=== PATIENT | female | born 1950 | race Caucasian/White ===

== ENCOUNTER 2018-10-20 10:22 | Inpatient (IN) | payer OTHER ==
[~2018-10-20] VITALS: Ht 167.6 cm; Wt 103.0 kg
[~2018-10-20 10:22] MED LIST: NAPROSYN500 MG PO; TRAMADOL 50 MG50 MG PO
[2018-10-20 11:02] LABS: HEMOGLOBIN 9.1 gm/dL (12.0-15.0); MCH 26.3 pg (26.0-34.0); MCHC 31.5 g/dL (28.0-37.0); MCV 83.5 fL (80.0-100.0); RBC 3.48 mil/uL (4.20-5.00); RDW 15.8 % (10.5-14.5)
[2018-10-20 11:12] LABS: ANION GAP 5 mmol/L (7-16); BUN 11 mg/dL (7-18); CALCIUM 9.2 mg/dL (8.5-10.1); CHLORIDE 101 mmol/L (98-107); CO2 39 mmol/L (21-32); CREATININE 0.8 mg/dL (0.6-1.0); GLUCOSE 240 mg/dL (74-106); POTASSIUM 3.1 mmol/L (3.5-5.1); SODIUM 145 mmol/L (136-145)
[2018-10-20 11:22] LABS: TROPONIN-I <0.06 ng/mL (<0.06)
[2018-10-20 12:11] VITALS: BP 114/49
--- NOTE | 2018-10-20 12:25 | NUR ---
REPORT TO ESTHER PRICE
--- NOTE | 2018-10-20 12:53 | NUR ---
REASSUMED PT CARE. ROOM ASSIGNEMT GIVEN AT 1230, SBAR FAXED
--- NOTE | 2018-10-20 12:57 | EKG ---
[address] [place] [address] ELECTROCARDIOGRAM REPORT Name: LYUBOV CASTILLO SANTANA Room #: 170-10 ADM IN M.R.#: [id number] Admission: 10/20/18 Attend Phys: Amy Matthews MD Discharge: Date of : 50 Report #: [id number] THIS REPORT FOR: //name// [facility] ED Test Date: 2018-10-20 Test Time: 11:15:23 Pat Name: LYUBOV CASTILLO Department: Room: 170 Gender: F Relay Man: ZAG : 1950 Requested By: Valentino Hull Order Number: [id number] MD: Mukul Ngo Measurements Intervals [place] Rate: 87 P: 73 MN: 150 QRS: 26 QRSD: 85 T: 50 QT: 351 QTc: 423 Interpretive Statements Sinus rhythm No significant abnormality Compared to ECG 06/23/2008 12:21:48 No significant changes Electronically Signed On 10-20-2018 12:57:11 PROGRAM ENGAGEMENT DIRECTOR by Mukul Ngo [email or web address] <ELECTRONICALLY SIGNED> By: Mukul Ngo MD, [facility] 10/20/18 1257 1115 1115 Mukul Ngo MD, FACC /EPI
[2018-10-20 13:10] VITALS: BP 125/62
[2018-10-20] MEDS ORDERED: ALLOPURINOL 10100 M1 PO (13:49)
[2018-10-20] MEDS ORDERED: NORVASC5 MG PO (14:12)
[2018-10-20] MEDS ORDERED: LIPITOR 20 MG T20 M1 PO (14:13)
[2018-10-20] MEDS ORDERED: CLOBETASOL PROP60 G3 TOP (14:15)
[2018-10-20] MEDS ORDERED: CLONAZEPAM 1 MG1 M1 PO (14:18)
[2018-10-20] MEDS ORDERED: IRON325 PO (14:19)
[2018-10-20] MEDS ORDERED: DALIRESP500 MCG PO (14:19)
[2018-10-20] MEDS ORDERED: LASIX 20 MG TAB20 MG PO (14:20)
[2018-10-20] MEDS ORDERED: AVAPRO300 MG PO (14:21)
[2018-10-20] MEDS ORDERED: JANUMET XR 50-1 EAC1 PO (14:22)
[2018-10-20] MEDS ORDERED: SYNTHROID175 MCG PO (14:23)
[2018-10-20] MEDS ORDERED: MOBIC15 MG PO (14:24)
[2018-10-20] MEDS ORDERED: TOPROL XL25 MG PO (14:25)
[2018-10-20] MEDS ORDERED: REQUIP 1 MG TABL1 M1 PO (14:26)
[2018-10-20] MEDS ORDERED: PROVENTIL HFA6.7 G1 INH (14:26)
[2018-10-20 16:36] VITALS: BP 156/74
--- NOTE | 2018-10-20 19:16 | NUR ---
RECEIVED REPORT FROM EDINSON WALKER. PT ARRIVED UNIT ON WHEELCHAIR AT 1500H ACCOMPANIED BY NURSING STAFF. PT AMBULATED TO BATHROOM ON ARRIVAL ON NC 4.0L. PT ON HEARTH AND CARB COUNT DIET. PT INSULIN ADM AND TOLERATES MEALS AND MEDS. PT PREFERS ICE. PT EDUCATED AND ORIENTED TO UNIT. PT CURRENTLY SITTED AT BEDSIDE LEANING ON BEDSIDE TABLE. PT EDUCATED TO USE CALL LIGHT. CONSULTED RESPIRATORY TO SETUP CPAP FOR PT. PT HAS NO S/S OF DISTRESS AND CONT TO BE MONITORED FOR SAFETY.
[2018-10-20 19:28] VITALS: BP 139/72
[2018-10-21 00:06] LABS: GLYCOHEMOGLOBIN (HGB A1C) 7.7 % (4.8-5.6)
[2018-10-21 03:17] VITALS: BP 137/85
--- NOTE | 2018-10-21 05:18 | NUR ---
PT AWAKE AND ALERT AT THE TIME OF SHIFT CHANGE. SITTING ON THE EDGE OF THE BED. NO COMPLAINTS AT THIS TIME. UP AD ALICIA, ON 4L NC, NO SIGNS OF DISTRESS. BLOOD SUGAR HIGH AND PT REQUESTING SUGARY SNACKS AND DRINKS. EDUCATION WAS GIVEN ON CARB CONTROL, STEROIDS AND THE HEALING PROCESS. WAS ABLE TO REDIRECT PT TO SUGAR FREE JELLO AND DIET SPRITE. 12U SLIDING SCALE INSULIN GIVEN. PT HAD NO C/O PAIN OVERNIGHT. WAS ONLY ABLE TO SLEEP ABOUT 3 HOURS WHICH SHE STATES IS NORMAL FOR HER. ON CPAP WHILE SLEEPING. O2 SATS REMAINED >92%. RESTLESS LEGS BOTHERED HER OVERNIGHT AND PT ASKED WHY SHE HAD NOT RECEIVED HER REQUIP. SPOKE TO CHRISTIN Johnson APRN. ORDER RECEIVED TO RESTART REQUIP 1MG PO QHS, INSTEAD OF THE THREE TIMES DAILY SHE TAKES IT AT HOME D/T HER COPD EXACCERBATION. PROGRESSING TOWARDS MEETING GOALS
[2018-10-21 05:29] LABS: HEMOGLOBIN 9.9 gm/dL (12.0-15.0); MCH 25.9 pg (26.0-34.0); MCV 83.3 fL (80.0-100.0); RBC 3.85 mil/uL (4.20-5.00); RDW 16.2 % (10.5-14.5)
[2018-10-21 05:41] LABS: CALCIUM 9.7 mg/dL (8.5-10.1); CREATININE 0.9 mg/dL (0.6-1.0)
[2018-10-21 07:36] VITALS: BP 149/93
--- NOTE | 2018-10-21 09:09 | 2DMMODE ---
[facility] [place] [address] 2 D/M-MODE ECHOCARDIOGRAM Name: LYUBOV CASTILLO TABOR Room #: 455-P ADM IN M.R.#: [id number] Admission: 10/20/18 Attend Phys: Amy Matthews MD Discharge: Date of : 50 Date of Service: 10/21/18 0908 Report #: [id number] THIS REPORT FOR: //name// APPROVED REPORT Study performed: 10/21/2018 08:15:06 EXAM: Comprehensive 2D, Doppler, and color-flow Echocardiogram Patient Location: Echo lab Room #: [facility] Status: routine BSA: 2.11 HR: 98 bpm BP: 149/93 mmHg Rhythm: NSR Other Information Study Quality: Excellent Indications Dyspnea Hx: COPD, HTN, HLP, DM 2D Dimensions RVDd: 31.23 mm IVSd: 11.03 (7-11mm) LVOT Diam: 19.98 (18-24mm) LVDd: 49.53 mm PWd: 11.90 (7-11mm) Ascending Ao: 30.87 (22-36mm) LVDs: 34.17 (25-40mm) Aortic Root: 30.44 mm Volumes Left Atrial Volume (Systole) Single Plane 4CH: 48.54 mL Single Plane 2CH: 53.54 mL LA ESV Index: 25.00 mL/m2 Aortic Valve AoV Peak Ryan.: 2.03 m/s AO Peak Gr.: 16.55 mmHg LVOT Max P.83 mmHg LVOT Max V: 1.31 m/s [place] Vmax: 2.01 cm2 Mitral Valve E/A Ratio: 0.8 MV Decel. Time: 168.75 ms [facility] [place] [place] [address] 2 D/M-MODE ECHOCARDIOGRAM Name: CASTILLOLUYBOV TABOR Room #: 455-[facility] IN ..#: [id number] Admission: 10/20/18 Attend Phys: Amy Matthews MD Discharge: Date of : 50 Date of Service: 10/21/18 0908 Report #: [id number] E Max Ryan.: 1.09 m/s MV A Ryan.: 1.40 m/s MV PHT: 48.94 ms IVRT: 48.44 ms Pulmonary Valve PV Peak Ryan.: 1.31 m/s PV Peak Gr.: 6.91 mmHg Pulmonary Vein P Vein S: 0.69 m/s P Vein A: 0.39 m/s P Vein D: 0.58 m/s P Vein A Dur.: 106.1 msec P Vein S/D Ratio: 1.19 Tricuspid Valve TR Peak Ryan.: 2.52 m/s RAP Estimate: 5.00 mmHg TR Peak Gr.: 25.33 mmHg PA Pressure: 30.00 mmHg Left Ventricle The left ventricle is normal size. There is normal LV segmental wall motion. Borderline concentric left ventricular hypertrophy. Left ventricular systolic function is normal. LVEF is 60-65%. Mild diastolic dysfunction is present (impaired relaxation pattern). Right Ventricle The right ventricle is normal size. The right ventricular systolic function is normal. Atria The left atrium size is normal. The right atrium size is normal. Aortic Valve The aortic valve is not well visualized. No aortic regurgitation is present. There is no aortic valvular stenosis. Mitral Valve The mitral valve is normal in structure. Mild mitral regurgitation. Tricuspid Valve The tricuspid valve is normal in structure. Trace tricuspid regurgitation. Estimated PAP is 30mmHg. Pulmonic Valve [facility] [address] [place] [address] 2 D/M-MODE ECHOCARDIOGRAM Name: LYUBOV CASTILLO TABOR Room #: 455-P [facility] IN .R.#: [id number] Admission: 10/20/18 Attend Phys: Amy Matthews MD Discharge: Date of : 50 Date of Service: 10/21/18 0908 Report #: [id number] Pulmonic valve is not well visualized. Great Vessels The aortic root is normal in size. The ascending aorta is normal in size. IVC is normal in size and collapses >50% with inspiration. Pericardium There is no pericardial effusion. <Conclusion> Left ventricular systolic function is normal. There is normal LV segmental wall motion. LVEF is 60-65%. Mild diastolic dysfunction The aortic valve is not well visualized. No aortic regurgitation or stenosis The mitral valve is normal in structure. Mild mitral regurgitation. Trace tricuspid regurgitation. Estimated pulmonary artery pressure of 30mmHg. There is no pericardial effusion. <ELECTRONICALLY SIGNED> By: Mukul Ngo MD, [facility] 10/21/18907 7 7 Mukul Ngo MD, FACC /INF
--- NOTE | 2018-10-21 10:02 | NUR ---
ORDER RECEIVED FOR EVAL AND TREAT. Pt IS UP AD ALICIA PER NURSING NOTES. SPOKE TO Pt WHO STATES SHE IS NOT HAVING ANY DIFFICULTY WITH MOBILITY AND HAS BEEN UP AND DOWN TO THE BATHROOM. Pt DECLINING FORMAL P.T. EVAL BUT STATES SHE WILL CONTINUE TO MOBILIZE ON HER OWN
--- NOTE | 2018-10-21 11:46 | NUR ---
ASSUMED CARE OF PT 0700. DENIES PAIN, SOA WITH ACTIVITY. VSS, COMPLIANT WITH CARES. SEEN BY DR PRATT TODAY WHO CLARIFIED PT CAN HAVE 2 CUPS DECAF COFFEE DAILY NO OTHER CHANGES WILL BE MADE TO DIET AT THIS POINT. MEDICATIONS CLARIFIED WITH PT PHARMACY. PT [facility]ED TO [facility].
[2018-10-21 12:00] VITALS: BP 157/86
--- NOTE | 2018-10-21 19:19 | NUR ---
PATIENT TRANSFERRED FROM [facility], REPORT FROM ALAINA/RN. PATIENT ALERT AND ORIENTED X 4. PATIENT UP AD ALICIA TO BATHROOM. PATIENT HAS O2 AT 4 LITERS/NC IN PLACE AND SHE USE AT HOME/CPAP AT NIGHT. PATIENT'S BLOOD SUGAR HAS BEEN ELEVATED SINCE LUNCH 453, NOTIFIED DR PRATT, SHE ORDERED TO REMOVE LUNCH TRAY CHECK HOURLY UNTIL UNDER 250, CONTINUE GIVING INSULIN EACH TIME PER S/S, S/S SCALE CHANGED TO MODERATE, AND START LANTUS 20 UNITS TONIGHT. LAST BLOOD SUGAR 265 AT 1820, 12 UNITS GIVEN. THIS RN CALLED DR PRATT AT 1700 TO GIVE UPDATE, NO RETURN CALL BACK, PATIENT ATE HER DINNER. WILL CONTINUE TO MONITOR.
[2018-10-21 19:27] VITALS: BP 126/60
[2018-10-21 22:46] VITALS: BP 126/60
--- NOTE | 2018-10-22 05:15 | NUR ---
Pt A/OX4,up ad mae in room. C/o a headache at HS medicated with Tylenol with relief reported. Pt's accucheck was 236 at 2140 so no more hourly accuchecks done and pt was pleased with the results as well. VSS.Voiding without any difficulties voiced. Pt wore the CPAP on until 0200 and requested to be turned off and back on O2 @ 4L/NC.Resting on the recliner at this time eyes closed,no distress noted. Call light/personal items placed within reach. Will continue to monitor pt.
[2018-10-22 06:15] LABS: HEMATOCRIT 29.3 % (37.0-47.0); HEMOGLOBIN 9.4 gm/dL (12.0-15.0); MCH 26.8 pg (26.0-34.0); MCHC 32.2 g/dL (28.0-37.0); RBC 3.53 mil/uL (4.20-5.00); RDW 16.4 % (10.5-14.5); WBC 8.4 thou/uL (4.0-11.0)
[2018-10-22 06:24] LABS: CALCIUM 9.6 mg/dL (8.5-10.1); CREATININE 0.9 mg/dL (0.6-1.0)
[2018-10-22 08:15] VITALS: BP 170/93
--- NOTE | 2018-10-22 11:06 | NUR ---
INITIAL ASSESSMEN: JAROD reviewed chart and spoke with nursing and attending physician. Pt was admitted from home due to exacerbation of COPD/Hypoxia. Pt was [facility] from and is progressing towards goals for discharge. [facility]. Introduced role of SW. Pt is alert/orientated x 4. Pt reports she lives at home with her dtr. Prior to admission, pt was independent with ADLs. Pt has a walker at home. Pt has home O2 and cpap provided by [facility]. Pt is normally on 4L of continuous O2. Pt is currently on service with [facility] for HH services. RN and PT see pt twice per week. Pt's PCP is Dr. Luz Marina Porter. Plan is for pt to discharge home and resume HH when medically stable. Pt's family will be able to provide transportation home. JAROD is following to assist as needed with discharge planning.
[2018-10-22] MEDS ORDERED: DOXYCYCLINE HYC50 MG PO (11:42)
[2018-10-22] MEDS ORDERED: PREDNISONE 20 M20 MG PO (11:42)
[2018-10-22 13:32] VITALS: BP 182/97
[2018-10-22] MEDS ORDERED: PROTONIX40 M1 PO (15:01)
--- NOTE | 2018-10-22 16:06 | NUR ---
dp faxed clinical info and dc orders to [facility], dp called [facility] to verify they received, patient home today.
--- NOTE | 2018-10-22 18:04 | NUR ---
ASSUMED CARE OF PATIENT AT 0715, PATIENT ALERT AND ORIENTED X 4. UP AD ALICIA. PATIENT DENIES PAIN, BUT HAD PAIN AT IV SITE, DR BRADFORD NOTIFIED, IV REMOVED, PATIENT GIVEN TRAMADOL, PAIN RESOLVED. BLOOD SUGAR MONITORING ORDERED, INSULIN GIVEN PER S/S. DR BRADFORD DISCHARGED PATIENT TO HOME WITH HOME HEALTH. ALL DISCHARGE PAPERWORK SENT WITH PATIENT, AND ALL PERSONAL BELONGONGS SENT WITH PATIENT.
--- NOTE | 2018-10-22 19:39 | HC ---
[facility] [address] CONSULTATION Name: LYUBOV CASTILLO Room #: 226-P [facility] IN .R.#: [id number] Admission: 10/20/18 Attend Phys: Amy Matthews MD Discharge: 10/22/18 Date of : 50 Report #: [id number] THIS REPORT FOR: //name// CC: Luz Marina Matthews DATE OF SERVICE: 10/20/2018 TYPE OF REPORT: Pulmonary consultation. REFERRING PHYSICIAN: Amy Matthews M.D. REASON FOR REFERRAL: COPD. HISTORY OF PRESENT ILLNESS: The patient is a 68-year-old white female who presents to the Emergency Room with progressive dyspnea. She has known history of COPD. A Pulmonary consultation was requested. The patient states that she is followed normally by the medical housekeeper at [facility]. She states that she has had frequent hospitalizations over the past year. She has been hospitalized at least once or twice per month over the last several months. She was told by the [facility] that she could no longer be there as they have nothing else to offer her. For that reason, the patient is here for further evaluation. Her medical housekeeper practices at [facility]. The patient has smoked for many years but quit in 2017. She knows that she gets recurrent dyspnea. As mentioned above, she has had trouble with frequent recurrent exacerbation of COPD and the reasons of this is unclear. On this occasion, she has been doing fair until the past few days prior to presentation, she noticed increasing dyspnea and lower extremity edema. Otherwise, denies any chest pain, night sweats or chills, productive cough or hemoptysis. She is on chronic O2 at 4 liters. PAST MEDICAL HISTORY: Notable for COPD, O2 dependent at 4 liters; diabetes mellitus type 2 and hypercholesterolemia. ALLERGIES: ASPIRIN, which causes hives. HOME MEDICATIONS: Include zolpidem, Norvasc, Lipitor, clonazepam, Daliresp, iron, Lasix, Avapro, Janumet, Synthroid, Mobic, Toprol-XL, Proventil and Requip. FAMILY HISTORY: Noncontributory. [facility] [address] [place] [address] CONSULTATION Name: LYUBOV CASTILLO SANTANA Room #: 226-P [facility] IN .R.#: [id number] Admission: 10/20/18 Attend Phys: Amy Matthews MD Discharge: 10/22/18 Date of : 50 Report #: [id number] SOCIAL HISTORY: Tobacco use as mentioned above, having smoked most of her life until 2017. She denies any alcohol use. She lives in [facility]. REVIEW OF SYSTEMS: As mentioned above. It is notable for frequent hospitalizations over the past year for dyspnea. PHYSICAL EXAMINATION: GENERAL: She is awake and alert, in no distress. VITAL SIGNS: Temperature is 97.7 degrees Fahrenheit, pulse is 100, respiratory rate is 20, blood pressure 157/86 mmHg and saturation 97%. HEENT: Normocephalic and atraumatic. NECK: Supple, without any lymphadenopathy or thyromegaly. CHEST: Breath sounds are fair bilaterally. Mild expiratory wheezes. CARDIOVASCULAR: Normal S1 and S2. No murmurs or gallop. There is no JVD. There is no carotid bruit. Pulses are 2+/4+ bilaterally. ABDOMEN: Soft and nontender. No organomegaly or masses felt. GENITOURINARY: Deferred. RECTAL: Deferred. EXTREMITIES: There is no cyanosis, clubbing or edema. RADIOLOGICAL DATA: EKG shows no acute ischemic changes. Chest x-ray shows mild bibasilar atelectasis. IMPRESSION: 1. Recurrent dyspnea in this 68-year-old white female. According to the patient, she has had multiple hospitalizations in the past for chronic obstructive pulmonary disease exacerbation. Cause of his recurrent exacerbation is unclear. 2. Chronic obstructive pulmonary disease, with frequent exacerbation. Possible cause may be a nocturnal reflux, possible sleep related breathing disorder. Recommend the patient follow closely with a medical housekeeper. 3. Moderate obesity, the patient should be screened for sleep disorder that this can be done as an outpatient. 4. Diabetes mellitus type 2. 5. Hypertension. RECOMMENDATIONS: Agree with current medical treatment plans including bronchodilators, corticosteroids and broad-spectrum antibiotics. DVT and GI prophylaxis recommended. As mentioned above with frequent hospitalizations, we would recommend that she follow closely with the physicians including a medical housekeeper. Also, as an outpatient, she should be screened for possible sleep related breathing disorder given the above frequent COPD exacerbations. [address] [address] CONSULTATION Name: LYUBOV CASTILLO SANTANA Room #: 226-P [facility] IN M.R.#: [id number] Admission: 10/20/18 Attend Phys: Amy Matthews MD Discharge: 10/22/18 Date of : 50 Report #: [id number] Lastly, we would recommend echocardiogram to rule out LV dysfunction resulting in heart failure, etc. Thank you for this consultation. <ELECTRONICALLY SIGNED> By: Guilelrmo Gastelum MD 10/22/18 1939 [id number] [id number] Guillermo Gastelum MD /nt
== END 2018-10-22 18:08 | disposition home health service (06) | DRG 189 ==
LOC: ER 10:22 → 4W 12:10 → EROBS 12:10 → 4W 14:58 → SICU 10-21 11:45 → ENTRNSPT 10-22 17:50 → SICU 10-22 18:08
PROVIDERS: Emergency Medicine; ADMIT Internal Medicine
PROC: 5A09357 Assistance with Respiratory Ventilation, Less than 24 Consecutive Hours, Continuous Positive Airway Pressure (ICD-10-PCS; principal; 2018-10-21)
DX: J96.21 Acute and chronic respiratory failure with hypoxia (principal); J44.1 Chronic obstructive pulmonary disease with (acute) exacerbation; E11.9 Type 2 diabetes mellitus without complications; I10 Essential (primary) hypertension; D64.9 Anemia, unspecified; E78.00 Pure hypercholesterolemia, unspecified; E66.09 Other obesity due to excess calories; Z68.36 Body mass index [BMI] 36.0-36.9, adult; Z99.81 Dependence on supplemental oxygen; Z87.891 Personal history of nicotine dependence; Z79.899 Other long term (current) drug therapy; Z88.6 Allergy status to analgesic agent
CPT/HCPCS: 10045; 10047; 15002

== ENCOUNTER 2020-02-17 13:19 | Inpatient (IN) | payer OTHER ==
[~2020-02-17] VITALS: Ht 167.6 cm; Wt 105.8 kg
[~2020-02-17 13:19] MED LIST changes: +ALLOPURINOL 10100 M1 PO; +AVAPRO300 MG PO; +CLOBETASOL PROP60 G3 TOP; +CLONAZEPAM 1 MG1 M1 PO; +DALIRESP500 MCG PO; +DOXYCYCLINE HYC50 MG PO; +IRON325 PO; +JANUMET XR 50-1 EAC1 PO; +LASIX 20 MG TAB20 MG PO; +LIPITOR 20 MG T20 M1 PO; +MOBIC15 MG PO; +NORVASC5 MG PO; +PREDNISONE 20 M20 MG PO; +PROTONIX40 M1 PO; +PROVENTIL HFA6.7 G1 INH; +REQUIP 1 MG TABL1 M1 PO; +SYNTHROID175 MCG PO; +TOPROL XL25 MG PO
[2020-02-17 13:28] VITALS: BP 198/84
[2020-02-17 14:13] LABS: BASOPHILS 1.2 % (0.0-2.0); HEMATOCRIT 37.5 % (37.0-47.0); HEMOGLOBIN 12.4 gm/dL (12.0-15.0); LYMPHOCYTES 22.7 % (24.0-44.0); MCH 29.8 pg (26.0-34.0); MCHC 33.2 g/dL (28.0-37.0); MCV 89.9 fL (80.0-100.0); MONOCYTES 4.7 % (1.0-8.0); PLATELET COUNT 291 thou/uL (150-400); POLYS 69.4 % (36.0-66.0); RBC 4.17 mil/uL (4.20-5.00); RDW 18.4 % (10.5-14.5); WBC 7.2 thou/uL (4.0-11.0)
[2020-02-17 14:25] LABS: ALBUMIN 3.1 g/dL (3.4-5.0); ANION GAP < 0 mmol/L (7-16); BUN 9 mg/dL (7-18); CHLORIDE 93 mmol/L (98-107); CO2 31 mmol/L (21-32); CREATININE 0.8 mg/dL (0.6-1.0); GLUCOSE 383 mg/dL (74-106); POTASSIUM 3.7 mmol/L (3.5-5.1); SODIUM 121 mmol/L (136-145); TOTAL BILIRUBIN 0.3 mg/dL (0.2-1.0); TROPONIN-I <0.06 ng/mL (<0.06)
[2020-02-17 14:26] LABS: DIRECT BILIRUBIN < 0.1 mg/dL (<0.1-0.2); SGOT 30 U/L (15-37); SGPT 31 U/L (30-65)
[2020-02-17 15:33] LABS: URINE BILIRUBIN NEGATIVE (Negative); URINE BLOOD NEGATIVE (Negative); URINE CLARITY CLEAR; URINE COLOR YELLOW; URINE GLUCOSE-RANDOM* 3+ (Negative); URINE KETONES NEGATIVE (Negative); URINE LEUKOCYTES-REFLEX NEGATIVE (Negative); URINE NITRITE-REFLEX POSITIVE (Negative); URINE PROTEIN (DIPSTICK) NEGATIVE (Negative); URINE UROBILINOGEN 0.2 E.U./dl (0.2-1.0)
[2020-02-17 15:35] LABS: BACTERIA-REFLEX >30 Many /HPF (None Seen); CRYSTALS None Seen /LPF (None Seen); SQUAMOUS 4-10 Moderate /LPF (0-3); URINE RBC None Seen /HPF (0-2); URINE WBC-REFLEX 6-15 Few /HPF (0-5)
--- NOTE | 2020-02-17 16:15 | EKG ---
[facility] [place] [address] ELECTROCARDIOGRAM REPORT Name: LYUBOV CASTILLO Room #: [facility]#: [id number] Admission: 02/17/20 Attend Phys: Discharge: Date of : 50 Report #: [id number] THIS REPORT FOR: cc: Luz Marina Porter Christine L. DO Lundgren, Craig H. MD [facility] THIS REPORT FOR: //name// [facility] ED Test Date: 2020-02-17 Test Time: 14:30:57 Pat Name: LYUBOV CASTILLO Department: Room: Gender: F Wage Hand: : 1950 Requested By: Collette English Order Number: [id number] MD: Mukul Ngo Measurements Intervals [place] Rate: 88 P: 56 [place]: 157 QRS: 10 QRSD: 86 T: 35 QT: 374 QTc: 453 Interpretive Statements Sinus rhythm No significant abnormality Compared to ECG 10/20/2018 11:15:23 No significant changes Electronically Signed On 02-17-2020 16:13:59 CDT by Mukul Ngo [email or web address] <ELECTRONICALLY SIGNED> By: Mukul Ngo MD, [facility] 02/17/20 1613 1430 1430 Mukul Ngo MD, [facility] /EPI
[2020-02-17 17:10] VITALS: BP 116/75
[2020-02-17 17:31] VITALS: BP 116/75
[2020-02-17 18:02] VITALS: BP 162/90
--- NOTE | 2020-02-17 19:01 | NUR ---
ASSUMED CARE APPROX 1750. PT ADMITTED FROM ED TO THIS UNIT. PT ALERT AND ORIENTED X4. ASSESSMENT CHARTED AND VSS. PT'S ADMISSION COMPLETE. CONSENTS SIGNED AND PLACED IN CHART. SR W/ PVC'S ON TELE MONITOR. PT ON 6LNC WITH NO SIGNS OF RESPIRATORY DISTRESS NOTED. PT DENIES ACUTE PAIN. WILL CONTINUE TO MONITOR.
[2020-02-17 20:30] VITALS: BP 151/90
[2020-02-18] VITALS: BP 153/89
--- NOTE | 2020-02-18 03:21 | NUR ---
ASSUMED CARE 1900. PT ALERT AND ORIENTED. VSS. DENIES CHEST PAIN, NAUSEA OR VOMITING. PT C/O SOB, SOLUMEDROL GIVEN SCHEDULED. NEW IV START BY ICU NURSE IN THE LEFT AC. PT CONTINUE TO REPORT BACK PAIN. HYDROCODONE PRN GIVEN. ON 5L OF . INDIPENDENT ADLs. VOIDING PER BEDSIDE COMMODE. PT PERIODICALLY WHEEZES. SCHEDULED NEBULIZERS. NO FURTHER CONCERNS. WILL CONTINUE TO MONITOR.
[2020-02-18 04:00] VITALS: BP 132/75
[2020-02-18 05:36] LABS: HEMATOCRIT 39.2 % (37.0-47.0); HEMOGLOBIN 12.9 gm/dL (12.0-15.0); MCH 29.6 pg (26.0-34.0); MCHC 32.9 g/dL (28.0-37.0); MCV 89.7 fL (80.0-100.0); RBC 4.37 mil/uL (4.20-5.00); RDW 18.4 % (10.5-14.5); WBC 7.1 thou/uL (4.0-11.0)
[2020-02-18 06:27] LABS: CALCIUM 8.3 mg/dL (8.5-10.1); CREATININE 0.9 mg/dL (0.6-1.0); POTASSIUM 4.6 mmol/L (3.5-5.1)
[2020-02-18 08:00] VITALS: BP 155/100
[2020-02-18] MEDS ORDERED: HYDROCODON-ACE1 EA12 PO (08:06)
--- NOTE | 2020-02-18 10:17 | 2DMMODE ---
[facility] [place] [address] 2 D/M-MODE ECHOCARDIOGRAM Name: LYUBOV CASTILLO SANTANA Room #: 213-P ADM IN M.R.#: [id number] Admission: 02/17/20 Attend Phys: Serjio Kaye MD Discharge: Date of : 50 Report #: [id number] THIS REPORT FOR: cc: Luz Marina Porter,Luz Marina Hendrickson,Cirilo Pagan MD ~ APPROVED REPORT Study performed: 02/18/2020 09:30:43 EXAM: Comprehensive 2D, Doppler, and color-flow Echocardiogram Patient Location: Bedside Room #: 213 Status: routine BSA: 2.12 HR: 77 bpm BP: 155/100 mmHg Rhythm: NSR Other Information Study Quality: Adequate Technically limited study due to COPD and morbid obesity. Indications Congestive Heart Failure Dyspnea Hx: COPD, DM, HTN, HLP. 2D Dimensions RVDd: 31.87 mm IVSd: 12.36 (7-11mm) LVOT Diam: 21.31 (18-24mm) LVDd: 43.51 mm PWd: 12.38 (7-11mm) LVDs: 33.58 (25-40mm) Aortic Root: 32.15 mm Volumes Left Atrial Volume (Systole) Single Plane 4CH: 40.35 mL Single Plane 2CH: 48.36 mL LA ESV Index: 22.00 mL/m2 Aortic Valve AoV Peak Ryan.: 2.08 m/s [facility] [employer] [address] [place] [address] 2 D/M-MODE ECHOCARDIOGRAM Name: LYUBOV CASTILLO SANTANA Room #: 213- ADM IN M.R.#: [id number] Admission: 02/17/20 Attend Phys: Serjio Kaye MD Discharge: Date of : 50 Report #: [id number] Peak Gr.: 17.27 mmHg LVOT Max P.32 mmHg AO Mean Gr.: 9.71 mmHg AO V2 Mean: 1.50 m/s LVOT Max V: 1.26 m/s AO V2 VTI: 46.14 cm [place] Vmax: 2.16 cm2 Mitral Valve E/A Ratio: 0.8 MV Decel. Time: 205.31 ms MV E Max Ryan.: 0.95 m/s MV A Ryan.: 1.15 m/s MV PHT: 59.54 ms IVRT: 79.58 ms Pulmonary Valve PV Peak Ryan.: 0.88 m/s PV Peak Gr.: 3.09 mmHg Pulmonary Vein P Vein S: 0.47 m/s P Vein A: 0.44 m/s P Vein D: 0.36 m/s P Vein A Dur.: 93.4 msec P Vein S/D Ratio: 1.31 Tricuspid Valve RAP Estimate: 5.00 mmHg Left Ventricle The left ventricle is normal size. There is normal LV segmental wall motion. Mild concentric left ventricular hypertrophy. The left ventricular systolic function is normal. LVEF is 60-65%. Mild diastolic dysfunction is present (impaired relaxation pattern). Right Ventricle The right ventricle is normal size. The right ventricular systolic function is normal. Atria The left atrium size is normal. The right atrium size is normal. Aortic Valve Aortic valve is mildly calcified. No aortic regurgitation is present. There is no aortic valvular stenosis. Mitral Valve The mitral valve is normal in structure. Mild mitral annular [facility] [address] [place] [address] 2 D/M-MODE ECHOCARDIOGRAM Name: LYUBOV CASTILLO MIDWAY Room #: 213-P ADM IN M.R.#: [id number] Admission: 02/17/20 Attend Phys: Serjio Kaye MD Discharge: Date of : 50 Report #: [id number] calcification. There is no mitral valve regurgitation noted. No evidence of mitral valve stenosis. Tricuspid Valve The tricuspid valve is normal in structure. There is no tricuspid valve regurgitation noted. Unable to assess PA pressure. Pulmonic Valve Pulmonic valve is not well visualized. Great Vessels The aortic root is normal in size. Ascending aorta is not well visualized. IVC is normal in size and collapses >50% with inspiration. Pericardium There is no pericardial effusion. <Conclusion> The left ventricle is normal size. Mild concentric left ventricular hypertrophy. The left ventricular systolic function is normal. Mild diastolic dysfunction is present (impaired relaxation pattern). The right ventricle is normal size. The left atrium size is normal. Aortic valve is mildly calcified. Mild mitral annular calcification. There is no tricuspid valve regurgitation noted. <ELECTRONICALLY SIGNED> By: Cirilo Rasmussen MD 02/18/20 1016 1016 1016 Cirilo Rasmussen MD /INF
--- NOTE | 2020-02-18 10:27 | NUR ---
chart review. cm visited with pt via phone call. intro to cm and transition of care ie hh. she a & o x 4 and able to make her needs know. 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 live in small small apartment. have cane, walker and wheel chair. daughter runs errands if need something. drt drives. manage own medication. o2 4 L/nc cont then if can not breathe increase to 5L. have breathing tx and cpap at home. [facility] all equipment function properly. [facility] is trying to get me new cpap machine. hh in past"/kirti. will cont following as needed for dc needs.
[2020-02-18 13:00] VITALS: BP 160/100
--- NOTE | 2020-02-18 16:02 | HC ---
[facility] [place] [address] CONSULTATION Name: LYUBOV CASTILLO Room #: 213-P [facility] IN M.R.#: [id number] Admission: 02/17/20 Attend Phys: Serjio Kaye MD Discharge: Date of : 50 Report #: [id number] THIS REPORT FOR: cc: Luz Marina Porter,Kenn Garcia MD ~ CC: Serjio Porter DATE OF SERVICE: 02/18/2020 ENDOCRINE CONSULTATION NOTE CONSULTING PHYSICIAN: Dr. Serjio Kaye. PRIMARY CARE PHYSICIAN: Dr. Luz Marina Porter. REASON FOR CONSULTATION: Severe hyperglycemia, uncontrolled type 2 diabetes mellitus. HISTORY OF PRESENT ILLNESS: This is a 70-year-old female patient whose medical background is significant for multiple medical issues including type 2 diabetes mellitus that she had for several years and that is maintained on Janumet 50-1000 mg taken as 2 tablets daily in addition to Humalog supplemental scale that she only takes as needed, which is only occasional. She describes blood glucose values that run between 120 and 180 mg/dL for the most part. She denies issues with hypoglycemia. The patient describes complications relating to cataracts, but not diabetic retinopathy, she also has been dealing with worsening issues of diabetic neuropathy affecting both hands and feet and occasionally resulting in sleep disturbances. She is not known to have chronic kidney disease or coronary artery disease. Also, the patient is hypothyroid and has been so for many years. She is currently maintained on levothyroxine 175 mcg daily, which she admits to occasionally missing at least a couple times a week. She has been fatigued, tired and unable to lose weight. Also, the patient is hyperlipidemic and is maintained on atorvastatin 20 mg at bedtime. She is hypertensive and is maintained on irbesartan 300 mg daily, amlodipine 10 mg daily. She is also on Toprol-XL 100 mg daily. The patient has COPD and is maintained on oxygen 4-6 liters 24 hours daily. She is also maintained on prednisone 40 mg daily. REVIEW OF SYSTEMS: [address] [address] CONSULTATION Name: LYUBOV CASTILLO [place] Room #: 213-P AD[facility] IN M.R.#: [id number] Admission: 02/17/20 Attend Phys: Serjio Kaye MD Discharge: Date of : 50 Report #: [id number] CONSTITUTIONAL: Fatigue, tiredness, but no fever or chills or body weight changes. HEENT: Negative for sore throat, sinus pain or ear drainage. PULMONARY: Baseline COPD, O2 dependent, prednisone dependent. Intermittent cough, no hemoptysis. CARDIAC: Dyspnea on exertion, lower extremity edema, occasional palpitations, no chest pain. GASTROINTESTINAL: Negative for abdominal pain, nausea, vomiting or changes in bowel frequency. NEUROLOGY: Negative for loss of consciousness, seizure activity. Severe frequent headaches, but she has baseline diabetic peripheral neuropathy affecting both feet and hands. Otherwise, review of systems noncontributory unless mentioned in HPI. PAST MEDICAL HISTORY: 1. Type 2 diabetes mellitus. 2. Diabetic neuropathy. 3. Cataracts. 4. Hypertension. 5. Hyperlipidemia. 6. Obesity. 7. COPD, O2 dependent and steroid dependent. 8. Gout. 9. Osteoarthritis. 10. Congestive heart failure. OUTPATIENT MEDICATIONS: Include sitagliptin/metformin mg 2 pills daily, levothyroxine 175 mcg daily, Mobic 50 mg at bedtime, Toprol-XL 100 mg daily, albuterol 2 puffs q. 4 hours p.r.n., Requip 1 mg p.o. t.i.d., irbesartan 300 mg daily, Lasix 40 mg b.i.d., ferrous sulfate 325 mg at bedtime, clonazepam 2 mg at bedtime, atorvastatin 20 mg at bedtime, amlodipine 10 mg daily, allopurinol 100 mg daily. ALLERGIES: No known drug allergies. FAMILY HISTORY: Noncontributory. SOCIAL HISTORY: The patient lives with her daughter. She used to be a smoker, but quit 4 years ago. Denies use of alcohol or illicit drugs. PHYSICAL EXAMINATION: GENERAL: Pleasant female patient who is not in apparent pain or distress. VITAL SIGNS: Blood pressure is 155/100 mmHg, heart rate is 90 beats per minute, respirations 20 per minute, temperature 37.0 Celsius. CONSTITUTIONAL: The patient is sitting upright, appears comfortable, [place] [address] CONSULTATION Name: LYUBOV CASTILLO [place] Room #: 213-P [facility] IN M.R.#: [id number] Admission: 02/17/20 Attend Phys: Serjio Kaye MD Discharge: Date of : 50 Report #: [id number] apparent distress. HEENT: Anicteric sclerae. Intact extraocular motions. NECK: Supple, without JVD or thyromegaly. CHEST: Noted for distant and limited air entry with scattered rales, rhonchi and wheezes, no crackles. HEART: Regular rate and rhythm without murmurs or gallops. ABDOMEN: Soft, lax. No guarding. Active bowel sounds. EXTREMITIES: Lower extremity exam is noted for trace ankle edema bilaterally. No skin breaks or ulcerations. Pedal pulses are faint. NEUROLOGIC: Awake, alert and oriented to time, place and person. The remainder of her examination is largely nonfocal other than for peripheral sensory deficits. PSYCHIATRIC: Pleasant, interactive. Normal mood and affect. Normal thought process. LABORATORY DATA: Blood glucose on arrival was 231 and then quickly pablo to 264, 367 and most recently 400 mg/dL. Sodium 133, potassium 4.6, chloride 97, CO2 of 34, anion gap 2, BUN 9, creatinine 0.9. Lipase 366, AST 30, total bilirubin 0.3, direct bilirubin less than 0.1, calcium 8.3, alkaline phosphatase 119, ALT 31, total protein 6.0, albumin 3.0. EGFR 62. Free T4 of 0.4. Free T3 1.23. White blood count 7.1, hemoglobin 12.9, hematocrit 39.2, platelets 262. TSH 35.123. Hemoglobin A1c in October 2018 was 7.7. ASSESSMENT AND PLAN: 1. Type 2 diabetes mellitus. The patient is typically well maintained on Janumet XR monotherapy. However, she has had an acute and severe worsening in the setting of using high dose intravenous glucocorticoids due to her COPD exacerbation. Given this outlook, the patient will be placed on a Humalog 12 units t.i.d. a.c. with meals in addition to Lantus 18 units daily. Blood glucose monitoring will commence a.c. and at bedtime and further adjustments will be made accordingly. I will maintain coverage with Humalog supplemental scale, moderate intensity to be used and supplement to the above stated regimen as needed. Also, I would like to resume metformin 750 mg b.i.d. given the steroid-induced hyperglycemia that we are dealing with. 2. Hypothyroidism. The patient has uncontrolled hypothyroidism and appears to have issues with consistency and compliance of intake. The patient was counseled at length about the importance of consistent intake and maintained control of her thyroid state. Given her indices, I will adjust the patient's levothyroxine dose to 250 mcg daily. TFT followup will be needed in 6-8 weeks from now. 3. Hyperlipidemia. The patient is maintained on atorvastatin therapy and tolerates it well, she is to continue with the same. 4. Hypertension. The patient's level of blood pressure control has been mostly adequate with some marginal readings, she is to continue with the same. [facility] [address] [place] [address] CONSULTATION Name: LYUBOV CASTILLO [place] Room #: 213-P [facility] IN M.R.#: [id number] Admission: 02/17/20 Attend Phys: Serjio Kaye MD Discharge: Date of : 50 Report #: [id number] I certainly appreciate this consultation by Dr. Kaye. <ELECTRONICALLY SIGNED> By: Kenn Ames MD 02/18/20 1602 [id number] Kenn Ames MD /nt
[2020-02-18 17:00] VITALS: BP 147/79
[2020-02-18 20:28] VITALS: BP 158/112
--- NOTE | 2020-02-18 20:46 | NUR ---
RECEIVED PT'S CARE AROUND 0715; PT. ON BED; AOX4; DURING AM ASSESSMENT C/O PAIN; MEDICATION GIVEN AT 0600; HOME MEDICATION UPDATE; PHYSICIAN NOTIFIED DURING ROUNDING; AM MEDICATION GIVEN; ELEVATED BS; PHYSICIAN NOTIFIED; ORDERS ON PLACED; THROUGH THE AFTERNOON C/O BACK PAIN; PRN PPRN PAIN MEDICATION GIVEN; EDUCATED ABOUT FALL PREVENTIONS; NEEDS TO BE REMAINED; SR ON THE MONITOR; ASSESSMENT CHARGED; FOLLOWING POC; PASSED ON REPORT;
[2020-02-19 01:07] LABS: GLYCOHEMOGLOBIN (HGB A1C) 9.5 % (4.8-5.6)
[2020-02-19 04:45] VITALS: BP 137/77
--- NOTE | 2020-02-19 05:21 | NUR ---
PT ALERT AND ORIENTED. VSS. DENIES CHEST PAIN, NAUSEA OR VOMITING. MINIMAL BACK PAIN REPORTED TONIGHT. INDEPENDENT IN HER ROOM. SR AND ST WITH ACTIVITIES. PT HOPES TO BE DC'D TODAY. REPORTS BREATHING MUCH BETTER. NO OTHER CONCERNS. WILL CONTINUE WITH CURRENT POC.
[2020-02-19 12:14] VITALS: BP 151/81
--- NOTE | 2020-02-19 14:11 | NUR ---
Pt indicates that she has hh services through [employer] [facility] [phone]. They will need to be notified at dc and hh orders (dc summary and instructions)faxed to [phone]. She has had both the Nursing as well as the homemaker through her [place] medicaid. Possible dc this weekend.
[2020-02-19 14:16] VITALS: BP 151/81
[2020-02-19 17:37] VITALS: BP 144/81
[2020-02-19 20:00] VITALS: BP 129/64
--- NOTE | 2020-02-19 21:24 | NUR ---
RECEIVED PT'S CARE AROUND 0720; PT. ON BED; AOX4; DURING AM ASSESSMENT C/O BACK PAIN; PRN PAIN MEDICATION GIVEN WITH AM MEDICATIONS; REMAINED ABOUT FALL PREVENTIONS & CALLING BEFORE GETTING UP FROM BED; ST. UNDERSTANDING; FORGETFUL; NEEDS TO BE REMAINED ABOUT IT THROUGH THE DAY; NOT ABLE TO DO SLIDING SCALE DURING BREAKFAST & DINNER DUE TO BS NO CHECKED BEFORE EATING MEAL; EDUCATED ABOUT CALLING BEFORE EATING; FORGETFUL REMAINED ABOUT IT; O2 TITRATE TO 4L; 94% 02 SAT; ABLE TO TAKE A SHOWER WITH OT; ELEVATED BP; PHYSICIAN NOTIFIED DURING ROUNDINGS; ORDERS ON PLACED; ASSESSMENT CHARGED; FOLLOWING POC; PASSED ON REPORT;
[2020-02-20 04:00] VITALS: BP 123/61
--- NOTE | 2020-02-20 06:10 | NUR ---
ASSESSMENTS CHARTED, MEDS GIVEN CHARTED. PATIENT ALERT AND ORIENTED DURING SHIFT. PATIENT SLEPT WELL DURING SHIFT, RECEIVED ANTIBIOTICS IV. FALL PRECAUTIONS IN PLACE DURING SHIFT. STATED SHE HAD CONSTANT PAIN, BUT DID NOT NEED ANY PAIN MEDS.
[2020-02-20 07:29] VITALS: BP 125/79
[2020-02-20 11:46] VITALS: BP 151/92
[2020-02-20] MEDS ORDERED: PREDNISONE 5 MG5 M1 PO (12:24)
--- NOTE | 2020-02-20 13:08 | NUR ---
ASSUMED CARE AT SHIFT CHANGE, ALERT AND ORIENTED X4. VSS AND DENIES ANY DISCOMFORT. BG COVERED WITH INSULIN PRESCRIBED, AND WILL CONTINUE WITH POC.
== END 2020-02-20 14:24 | disposition home health service (06) | DRG 871 ==
LOC: ER 13:19 → EROBS 16:16 → 2N 16:16
PROVIDERS: Emergency Medicine; Internal Medicine; ADMIT Hospitalist; ATTEND Hospitalist
DX: A41.9 Sepsis, unspecified organism (principal); J96.21 Acute and chronic respiratory failure with hypoxia; I50.31 Acute diastolic (congestive) heart failure; J44.1 Chronic obstructive pulmonary disease with (acute) exacerbation; N39.0 Urinary tract infection, site not specified; E87.1 Hypo-osmolality and hyponatremia; E78.00 Pure hypercholesterolemia, unspecified; M54.9 Dorsalgia, unspecified; E11.40 Type 2 diabetes mellitus with diabetic neuropathy, unspecified; E03.9 Hypothyroidism, unspecified; E78.5 Hyperlipidemia, unspecified; E11.36 Type 2 diabetes mellitus with diabetic cataract; E66.9 Obesity, unspecified; M10.9 Gout, unspecified; M19.90 Unspecified osteoarthritis, unspecified site; G89.29 Other chronic pain; B96.20 Unspecified Escherichia coli [E. coli] as the cause of diseases classified elsewhere; K21.9 Gastro-esophageal reflux disease without esophagitis; G47.00 Insomnia, unspecified; E11.65 Type 2 diabetes mellitus with hyperglycemia; I11.0 Hypertensive heart disease with heart failure; Z91.048 Other nonmedicinal substance allergy status; Z79.899 Other long term (current) drug therapy; Z79.51 Long term (current) use of inhaled steroids; Z87.891 Personal history of nicotine dependence; Z68.37 Body mass index [BMI] 37.0-37.9, adult; Z99.81 Dependence on supplemental oxygen
CPT/HCPCS: 10081